=== PATIENT | female | born 1990 | race American Indian/Alaskan Native ===

== ENCOUNTER 2016-04-23 21:24 | Emergency (ER) | payer MEDICAID ==
[2016-04-23] MEDS ORDERED: ZOFRAN ODT ONE (22:16)
[2016-04-23 23:07] LABS: Alanine Aminotransferase 15 units/L (7-56); Albumin 4.6 g/dL (3.9-5); Albumin/Globulin Ratio 1.4 %; Alkaline Phosphatase 60 units/L (35-129); Anion Gap 25 mmol/L; BUN/Creatinine Ratio 26.25; Bilirubin,Total 0.4 mg/dL (0.1-1.2); Blood Urea Nitrogen 21 mg/dL (7-17); Calcium 9.5 mg/dL (8.4-10.2); Carbon Dioxide 17 mmol/L (22-30); Chloride 99.6 mmol/L (98-107); Glucose 137 mg/dL (65-100); Lipase 33 units/L (13-60); Potassium 3.2 mmol/L (3.6-5.0); Sodium 138 mmol/L (137-145)
[2016-04-23 23:27] LABS: Basophils % (Auto) 0.4 % (0.0-1.8); Eosinophils % (Auto) 0.4 % (0.0-4.3); Hematocrit 37.3 % (30.3-42.9); Hemoglobin 12.5 gm/dl (10.1-14.3); Mean Corpuscular HGB Conc 34 % (30-34); Mean Corpuscular Hemoglobin 32 pg (28-32); Mean Corpuscular Volume 96 fl (79-97); Platelet Count 319 K/mm3 (140-440); Red Blood Count 3.88 M/mm3 (3.65-5.03); White Blood Count 13.5 K/mm3 (4.5-11.0)
[2016-04-23] MEDS ORDERED: ZOFRAN IV ONE (23:41)
[2016-04-23] MEDS ORDERED: NACL 0.9% 1000 ML 1,000 ML IV ONE (23:41)
[2016-04-23] MEDS ORDERED: REGLAN IV ONE (23:47)
[2016-04-23] MEDS ORDERED: PEPCID IV ONE (23:49)
[2016-04-23 23:51] LABS: Bilirubin,Urine NEG (Negative); Blood,Urine MOD (Negative); Ketones,Urine 80 mg/dL (Negative); Leukocyte Esterase,Urine MOD (Negative); Mucus,Urine 3+ /HPF; Nitrite,Urine NEG (Negative); Urobilinogen,Urine < 2.0 mg/dL (<2.0)
--- NOTE | 2016-04-23 23:55 | Emergency Department Report ---
HPI - General Chief Complaint: Abdominal Pain Time Seen by Provider: 04/23/16 23:40 - HPI HPI: Room 23 The patient is a 26-year-old female presenting with a chief complaint: Pain nausea and vomiting. Patient states her symptoms began 3 days frequent nausea vomiting. Patient denies diarrhea. Patient admits to epigastric abdominal pain that has been intermittent and aching/sharp in nature. Patient denies any sick contacts. Patient denies dysuria or hematuria. Patient denies recent antibiotic use. Patient admits to vaginal discharge for the past 3 days that has been white in color. The patient currently gives her pain a score of 10/10 Location: Abdomen Duration: 3 days Quality: Sharp, aching Severity: 10/10 Modifying factors: [see above] Context: [see above] Mode of transportation: [not driving] ED Past Medical Hx - Past Medical History Previous Medical History?: No - Surgical History Past Surgical History?: No Additional Surgical History: - Family History Family history: no significant - Social History Smoking Status: Never Smoker Substance Use Type: None, Alcohol (occasional) - Medications Home Medications: Home Medications Medication Instructions Recorded Confirmed Last Taken Type Famotidine [Pepcid] 20 mg PO BID #30 tablet 04/24/16 Unknown Rx Promethazine [Phenergan TAB] 25 mg PO Q6HR PRN #20 tab 04/24/16 Unknown Rx Promethazine [Phenergan] 25 mg MT Q6HR PRN #10 supp.rect 04/24/16 Unknown Rx Sulfamethoxazole/Trimethoprim 1 each PO BID #14 tablet 04/24/16 Unknown Rx [Bactrim DS TAB] traMADol [Ultram] 50 mg PO Q6HR PRN #10 tablet 04/24/16 Unknown Rx ED Review of Systems ROS: Stated complaint: VOMITING X2 DAYS Other details as noted in HPI Comment: All other systems reviewed and negative Constitutional: fever (subjective) Eyes: denies: eye pain, eye discharge, vision change ENT: denies: ear pain, throat pain Respiratory: denies: cough, shortness of breath, wheezing Cardiovascular: denies: chest pain, palpitations Endocrine: no symptoms reported Gastrointestinal: abdominal pain, nausea, vomiting. denies: diarrhea Genitourinary: discharge. denies: dysuria, frequency, hematuria, abnormal menses Musculoskeletal: denies: back pain, joint swelling, arthralgia Skin: denies: rash, lesions Neurological: denies: headache, weakness, paresthesias Psychiatric: denies: anxiety, depression Hematological/Lymphatic: denies: easy bleeding, easy bruising Physical Exam - Physical Exam Vital Signs: Vital Signs 04/23/16 22:10 Temperature 98 F Pulse Rate 66 Respiratory 18 Rate Blood Pressure 120/72 O2 Sat by Pulse 99 Oximetry Physical Exam: GENERAL: The patient is well-developed well-nourished female lying on stretcher appearing to be in moderate discomfort. [] HEENT: Normocephalic. Atraumatic. Extraocular motions are intact. NECK: Supple. Trachea midline CHEST/LUNGS: Clear to auscultation. There is no respiratory distress noted. HEART/CARDIOVASCULAR: Regular. There is no tachycardia. There is no gallop rub or murmur. ABDOMEN: Abdomen is soft, with trace discomfort to palpation in the epigastric region. Otherwise abdomen soft and nontender. There is no rebound or guarding. Patient has normal bowel sounds. There is no abdominal distention. SKIN: There is no rash. There is no edema. There is no diaphoresis. NEURO: The patient is awake, alert, and oriented. The patient is cooperative. The patient has normal speech MUSCULOSKELETAL: There is no evidence of acute injury. PELVIC: Moderate thick white discharge present in the vault. No evidence of erythema seen ED Course Vital Signs 04/23/16 22:10 Temperature 98 F Pulse Rate 66 Respiratory 18 Rate Blood Pressure 120/72 O2 Sat by Pulse 99 Oximetry ED Medical Decision Making - Lab Data Result diagrams: 04/23/16 22:34 04/23/16 22:34 Laboratory Tests 04/23/16 04/23/16 04/23/16 22:34 22:34 23:22 WBC 13.5 H RBC 3.88 Hgb 12.5 Hct 37.3 MCV 96 MCH 32 MCHC 34 RDW 13.0 L Plt Count 319 Lymph % (Auto) 25.9 [place] % (Auto) 6.0 Eos % (Auto) 0.4 Baso % (Auto) 0.4 Lymph # 3.5 [place] # 0.8 Eos # 0.1 Baso # 0.1 Seg Neutrophils % 67.3 Seg Neutrophils # 9.1 H Sodium 138 Potassium 3.2 L Chloride 99.6 Carbon Dioxide 17 L Anion Gap 25 BUN 21 H Creatinine 0.8 Estimated GFR > 60 BUN/Creatinine Ratio 26.25 Glucose 137 H Calcium 9.5 Total Bilirubin 0.4 AST 18 ALT 15 Alkaline Phosphatase 60 Total Protein 8.0 Albumin 4.6 Albumin/Globulin Ratio 1.4 Lipase 33 Urine Color Yellow Urine Turbidity Cloudy Urine pH 5.0 Ur Specific [place] 1.033 H Urine Protein 100 mg/dl Urine Glucose (UA) Neg Urine Ketones 80 Urine Blood Mod Urine Nitrite Neg Urine Bilirubin Neg Urine Urobilinogen < 2.0 Ur Leukocyte Esterase Mod Urine WBC (Auto) 43.0 H Urine RBC (Auto) 14.0 U Epithel Cells (Auto) 19.0 H Urine Mucus 3+ Urine HCG, Qual Negative Wet prep-less than 20% clue cells, no trichomonas or yeast seen - Radiology Data Radiology results: report reviewed (CT abdomen and pelvis), image reviewed (CT abdomen and pelvis) CT abdomen and pelvis (read by radiologist)-findings concerning for mild gastritis and enteritis. No bowel obstruction. Visualized portions of the appendix are normal in caliber. Small amount of free fluid in the pelvis with physiologic limits. - Differential Diagnosis cystitis, vaginitis, urethritis, pancreatitis, gastroenteritis Critical care attestation.: If time is entered above; I have spent that time in minutes in the direct care of this critically ill patient, excluding procedure time. ED Disposition Clinical Impression: Gastritis, Acute abdominal pain, UTI (urinary tract infection), Vaginal discharge, Nausea & vomiting Disposition: DISCHARGED TO HOME OR SELFCARE Is pt being admited?: No Does the pt Need Aspirin: No Condition: Stable Instructions: Abdominal Pain (ED) Additional Instructions: Return to the emergency department immediately should you develop worsening symptoms, fever, inability to tolerate food or liquid or any other concerns. Prescriptions: Famotidine [Pepcid] 20 mg PO BID #30 tablet Promethazine [Phenergan TAB] 25 mg PO Q6HR PRN #20 tab PRN Reason: Nausea Promethazine [Phenergan] 25 mg MT Q6HR PRN #10 supp.rect PRN Reason: Vomiting Sulfamethoxazole/Trimethoprim [Bactrim DS TAB] 1 each PO BID #14 tablet traMADol [Ultram] 50 mg PO Q6HR PRN #10 tablet PRN Reason: Pain Referrals: PRIMARY CARE, [Primary Care Provider] - 3-5 Days JEAN-PAUL HOUSER MD [Staff Physician] - 3-5 Days (Dr. Houser is a environmental services supervisor. Please follow up with him for further evaluation of your vaginal discharge) RAMONA BETTENCOURT MD [Staff Physician] - 3-5 Days (Dr. Bettencourt is a home appliance tech. Please follow up with him for further evaluation of your abdominal pain) Time of Disposition: 02:51
[2016-04-24] MEDS: MORPHINE IV ONE ×2 (00:05→00:10)
[2016-04-24] MEDS: ROCEPHIN/NS 1 GM/50 ML 1 GM/50 ML BAG IV ONE ×2 (00:09→00:35)
[2016-04-24] MEDS ORDERED: NACL ONE (00:29)
--- NOTE | 2016-04-24 02:09 | Cat Scan Report ---
FINAL REPORT EXAM: CT ABDOMEN PELVIS W CON HISTORY: epigastric abdominal pain nausea vomiting COMPARISON: None available. TECHNIQUE: Contiguous axial images were obtained. Additional sagittal and coronal reformatted images were obtained. Administration of IV contrast given per institution protocol. Images submitted for interpretation. 100 cc Omnipaque [id number]. FINDINGS: Lung bases are clear. No calcified gallstones. No biliary dilatation. Mild fatty infiltration of the liver. Spleen, pancreas, adrenal glands are grossly unremarkable. No solid renal lesion. No hydronephrosis. Aorta is normal in caliber. Uterus is grossly unremarkable. Left ovarian cystic structure compatible dominant follicle measuring 1.6 x 1.0 centimeters. Right ovary is grossly unremarkable. Urinary bladder is decompressed. Small amount of free fluid in the pelvis within physiologic limits. Stomach is decompressed. Mild hyperemia wall thickening the stomach concerning for mild gastritis. Also several fluid-filled small bowel loops in the pelvis. Mild enteritis cannot be excluded. No bowel obstruction. Partial visualization of the appendix which is gas-filled measuring 5 millimeters in diameter. No adjacent fat stranding or fluid. Left colon is decompressed. This limits evaluation wall thickening. Bony pelvis and lumbar spine are grossly intact. IMPRESSION: Findings concerning for mild gastritis and enteritis. No bowel obstruction. Visualized portions the appendix are normal in caliber. Small amount of free fluid in the pelvis within physiologic limits.
[2016-04-24] MEDS ORDERED: ZITHROMAX PO ONE (02:43)
[2016-04-24] MEDS ORDERED: K-DUR PO ONE (02:44)
[2016-04-24] MEDS ORDERED: ZOFRAN ODT PO ONE (03:01)
[2016-04-24] MEDS ORDERED: MORPHINE IV ONE (03:30)
[2016-04-24] MEDS ORDERED: MORPHINE ONE (03:34)
[2016-04-24 06:30] VITALS: BP 118/62
== END 2016-04-24 04:15 | disposition home or self-care (01) ==
LOC: ED 21:24
DX: K29.70 Gastritis, unspecified, without bleeding (principal); N39.0 Urinary tract infection, site not specified
CPT/HCPCS: 36415; 74177; 80053; 81001; 81025; 83690; 85025; 87210; 87591; 96365; 96375; 96376; 99285; J0696; J2270; J2765; J7030; Q9967; Q0162